=== PATIENT | female | born 2000 | race Two or more races ===

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

== ENCOUNTER 2019-07-03 22:04 | Emergency (ER) | payer OTHER ==
[~2019-07-03] VITALS: Ht 157.5 cm; Wt 77.0 kg
[~2019-07-03 22:04] MED LIST changes: +CLOT15CR4 TP
[2019-07-03 22:15] VITALS: BP 146/92
[2019-07-03 22:24] LABS: BILIRUBIN,URINE NEGATIVE (NEG); CLARITY,URINE CLEAR; COLOR,URINE YELLOW; NITRITE,URINE NEGATIVE (NEG); PH,URINE 5.5 (<5.0-8.0); PROTEIN,URINE NEGATIVE (NEG-TRACE)
--- NOTE | 2019-07-03 22:29 | PHYS DOC ---
Past Medical History Past Medical History: Abscess Additional Past Medical Histor: STOMACH ABSCESS CHILD, RIGHT GREAT TOE ABCESS, MRSA Past Surgical History: Other Additional Past Surgical Histo: STOMACH SX D/T ABSCESS Smoking Status: Never Smoker Alcohol Use: None Drug Use: Marijuana General Adult EDM: Chief Complaint: SEXUALLY TRANSMITTED DISEASE HPI: HPI: Patient is a 19 year old female who presents secondary to concern for possible syphilis. Her ex boyfriend tested positive for syphilis 2 days ago and the pa nadia reports that she was with him 2 weeks ago having unprotected intercourse. She complains of some mild whitish discharge, no fever or chills, no dysuria or hematuria. No medications given prior to arrival. Review of Systems: Review of Systems: All other systems negative except as documented in HPI. Heart Score: Risk Factors: Risk Factors: DM, Current or recent (<one month) smoker, HTN, HLP, family history of CAD, obesity. Risk Scores: Score 0 - 3: 2.5% MACE over next 6 weeks - Discharge Home Score 4 - 6: 20.3% MACE over next 6 weeks - Admit for Clinical Observation Score 7 - 10: 72.7% MACE over next 6 weeks - Early Invasive Strategies Allergies: Allergies: Allergies Coded Allergies Type Severity Reaction Last Updated Verified tioconazole Allergy Intermediate Swelling 07/01/15 Yes Physical Exam: PE: Constitutional: Well developed, well nourished, no acute distress, non-toxic appearance. [] HENT: Normocephalic, atraumatic, bilateral external ears normal, oropharynx moist, no oral exudates, nose normal. [] Eyes: PERRLA, EOMI, conjunctiva normal, no discharge. [] Neck: Normal range of motion, no tenderness, supple, no stridor. [] Cardiovascular:Heart rate regular rhythm, no murmur [] Lungs & Thorax: Bilateral breath sounds clear to auscultation [] Abdomen: Bowel sounds normal, soft, no tenderness, no masses, no pulsatile masses. [] Skin: Warm, dry, no erythema, no rash. [] Back: No tenderness, no CVA tenderness. [] Extremities: No tenderness, no cyanosis, no clubbing, ROM intact, no edema. [] Neurologic: Alert and oriented X 3, normal motor function, normal sensory function, no focal deficits noted. [] Psychologic: Affect normal, judgement normal, mood normal. [] Current Patient Data: Labs: Laboratory Tests Test 07/03/19 22:13 POC Urine HCG, Qualitative Hcg negative (Negative) EKG: EKG: [] Radiology/Procedures: Radiology/Procedures: [] Course & Med Decision Making: Course & Med Decision Making 2227: This patient is seen for concern for syphilis. We will obtain laboratory analysis and go ahead and treat her with penicillin 2,400,000 units. Patient is referred to the [facility] for further STD screening. Dragon Disclaimer: Dragon Disclaimer: This electronic medical record was generated, in whole or in part, using a voice recognition dictation system. Departure Departure Impression: Primary Impression: STD exposure Disposition: HOME, SELF-CARE Condition: STABLE Referrals: NO PCP (PCP) Patient Instructions: Sexually Transmitted Disease Additional Instructions: Please follow-up with [facility] for further STD screening. [address] [place] [address] YAZMIN JONES DO Jul 03, 2019 22:29
[2019-07-03 22:34] LABS: BACTERIA,URINE MODERATE /HPF (0-FEW); RBC,URINE 0 /HPF (0-2); WBC,URINE OCC /HPF (0-4)
[2019-07-03 22:35] LABS: SQUAMOUS EPITHELIAL CELL,UR FEW /LPF
[2019-07-03] MEDS ORDERED: PENICILLIN G BENZATHINE LA 2,400,000 UNIT/4 ML DISP.SYRIN. IM ONE (23:00)
== END 2019-07-03 23:00 | disposition home or self-care (01) ==
LOC: ER 22:04
DX: Z20.2 Contact with and (suspected) exposure to infections with a predominantly sexual mode of transmission (principal); N89.8 Other specified noninflammatory disorders of vagina; Z88.8 Allergy status to other drugs, medicaments and biological substances
CPT/HCPCS: 36415; 81001; 81025; 86592; 87086; 96372; 99283; J0561

== ENCOUNTER 2019-11-25 21:09 | Emergency (ER) | payer SELFPAY ==
[~2019-11-25] VITALS: Ht 160 cm; Wt 72.7 kg
[~2019-11-25 21:09] MED LIST changes: +CLOT15CR23 TP; -CLOT15CR4 TP
[2019-11-25 21:24] LABS: BILIRUBIN,URINE NEGATIVE (NEG); COLOR,URINE YELLOW; NITRITE,URINE NEGATIVE (NEG); PH,URINE 8.5 (<5.0-8.0); PROTEIN,URINE NEGATIVE (NEG-TRACE); UROBILINOGEN,URINE 0.2 mg/dL (0.2 mg/dL)
[2019-11-25 21:28] LABS: CLARITY,URINE CLEAR; SQUAMOUS EPITHELIAL CELL,UR MOD /LPF
[2019-11-25 21:29] LABS: BACTERIA,URINE FEW /HPF (0-FEW)
[2019-11-25 21:30] LABS: RBC,URINE 0 /HPF (0-2); WBC,URINE 0 /HPF (0-4)
[2019-11-25 21:35] VITALS: BP 138/88
--- NOTE | 2019-11-25 22:41 | PHYS DOC ---
Past Medical History Past Medical History: Abscess Additional Past Medical Histor: STOMACH ABSCESS CHILD, RIGHT GREAT TOE ABCESS, MRSA Past Surgical History: Other Additional Past Surgical Histo: STOMACH SX D/T ABSCESS Smoking Status: Never Smoker Additional Information: [employer] USER Alcohol Use: Occasionally Drug Use: Marijuana General Adult EDM: Chief Complaint: SEXUALLY TRANSMITTED DISEASE HPI: HPI: Patient is a 27-year-old female G1, P1 presenting with a possible STD. Patient states that for the past 2 weeks she has had increased malodorous discharge with a possible "cut" on the external surface of the labia majora. Patient has had 2 sexual partners in the last 2 months. Patient had chlamydia 2 years ago which was successfully treated. Patient has the Nexplanon since the of her son in 2018, patient does not have menstrual periods but has been intermittent sp otting. Patient denies any abdominal pain, burning while urinating, trouble defecating, fevers. Domestic abuse screening negative. Review of Systems: Review of Systems: Constitutional: Denies fever or chills Eyes: Denies redness or eye pain HENT: Denies nasal congestion or sore throat Respiratory: Denies cough or shortness of breath Cardiovascular: Denies chest pain or palpitations GI: Denies abdominal pain, nausea, or vomiting : Denies dysuria or hematuria, endorses malodorous vaginal discharge Musculoskeletal: Denies back pain or joint pain Integument: Denies rash or skin lesions Neurologic: Denies headache, focal weakness or sensory changes Complete systems were reviewed and found to be within normal limits, except as documented in this note. Allergies: Allergies: Allergies Coded Allergies Type Severity Reaction Last Updated Verified tioconazole Allergy Intermediate Swelling 07/01/15 Yes Physical Exam: PE: Constitutional: Well developed, well nourished, no acute distress, non-toxic appearance HENT: Normocephalic, atraumatic Eyes: PERRL, EOMI, conjunctiva normal, no discharge Neck: Normal range of motion, no tenderness, supple Lungs & Thorax: Bilateral breath sounds clear to auscultation, no wheezing Abdomen: Soft, no tenderness Skin: Warm, dry, no erythema, no rash Back: No tenderness, no CVA tenderness Extremities: No tenderness, ROM intact, no edema Neurologic: Alert and oriented X 3, normal motor function, normal sensory function, no focal deficits noted Psychologic: Affect normal, judgment normal Current Patient Data: Labs: Laboratory Tests Test 11/25/19 21:15 11/25/19 21:29 Urine Collection Type Unknown Urine Color Yellow Urine Clarity Clear Urine pH 8.5 (<5.0-8.0) Urine Specific [place] 1.015 (1.000-1.030) Urine Protein Negative mg/dL (NEG-TRACE) Urine Glucose (UA) Negative mg/dL (NEG) Urine Ketones (Stick) Trace mg/dL (NEG) Urine Blood Negative (NEG) Urine Nitrite Negative (NEG) Urine Bilirubin Negative (NEG) Urine Urobilinogen Dipstick 0.2 mg/dL (0.2 mg/dL) Urine Leukocyte Esterase Negative (NEG) Urine RBC 0 /HPF (0-2) Urine WBC 0 /HPF (0-4) Urine Squamous Epithelial Cells Mod /LPF Urine Bacteria Few /HPF (0-FEW) Urine Mucus Marked /LPF POC Urine HCG, Qualitative Hcg negative (Negative) Vital Signs: Vital Signs Date Time Temp Pulse Resp B/P (MAP) Pulse Ox O2 Delivery O2 Flow Rate FiO2 11/25/19 21:35 98.1 97 18 138/88 (105) 98 Room Air 98.1 Course & Med Decision Making: Course & Med Decision Making Pertinent Labs and Imaging studies reviewed. (See chart for details) Patient is a 19-year-old female presenting with possible STD. Patient has had increased malodorous vaginal discharge and a possible "scratch" on labia majora for the past 2 weeks. Urine test is negative, UA shows negative nitrates, negative blood, negative leukocyte esterase. Chlamydia and gonorrhea PCR is also pending. Wet prep shows Patient stable for discharge with outpatient follow-up with PCP. Discussed findings and plan with patient, who acknowledges understanding and agreement. Dragon Disclaimer: Dragon Disclaimer: This electronic medical record was generated, in whole or in part, using a voice recognition dictation system. Departure Departure Impression: Primary Impression: Concern about sexually transmitted disease in female without diagnosis Additional Impression: Bacterial vaginitis Disposition: 01 HOME, SELF-CARE Condition: STABLE Referrals: NO PCP (PCP) LISA RICE Jr, MD Patient Instructions: Bacterial Vaginosis, [id number], Sexually Transmitted Disease, [id number] Scripts Metronidazole (FLAGYL) 500 Mg Tablet 1 TAB PO BID for 7 Days, #14 TAB Prov: CHIN RINALDI DO 11/25/19 Justicifation of Admission Dx: Justifications for Admission: Justification of Admission Dx: N/A CHIN RINALDI DO Nov 25, 2019 22:41
[2019-11-25] MEDS ORDERED: cefTRIAXone IM 250 MG VIAL IM ONE (23:34)
[2019-11-25] MEDS ORDERED: AZITHROMYCIN 250 MG TABLET. ONE (23:34)
[2019-11-25] MEDS ORDERED: METR500T PO (23:46)
[2019-11-26] MEDS ORDERED: AZITHROMYCIN 250 MG TABLET. PO ONE (00:15)
[2019-11-26] MEDS ORDERED: cefTRIAXone IM 250 MG VIAL IM ONE (00:15)
[2019-11-27 21:08] LABS: GC PROBE Negative (Negative)
== END 2019-11-25 23:52 | disposition home or self-care (01) ==
LOC: ER 21:09
DX: N76.0 Acute vaginitis (principal); B96.89 Other specified bacterial agents as the cause of diseases classified elsewhere; Z20.2 Contact with and (suspected) exposure to infections with a predominantly sexual mode of transmission; Z88.8 Allergy status to other drugs, medicaments and biological substances
CPT/HCPCS: 81001; 81025; 87491; 87591; 96372; 99283; J0696; Q0111

== ENCOUNTER 2020-08-04 13:36 | Emergency (ER) | payer SELFPAY ==
[~2020-08-04] VITALS: Ht 160 cm; Wt 68.2 kg
[~2020-08-04 13:36] MED LIST changes: +METR500T PO
--- NOTE | 2020-08-04 15:27 | PHYS DOC ---
Past Medical History Past Medical History: No Pertinent History Additional Past Medical Histor: STOMACH ABSCESS CHILD, RIGHT GREAT TOE ABCESS, MRSA Past Surgical History: No Surgical History Additional Past Surgical Histo: STOMACH SX D/T ABSCESS Smoking Status: Current Every Day Smoker Alcohol Use: None Drug Use: Marijuana General Adult EDM: Chief Complaint: SORE THROAT HPI: HPI: Patient is a 20 year old female who presents with a sore throat for the last week. She has had some nausea. She states that she has been getting strep frequently the last couple months. She denies abdominal pain, not been able to swallow saliva or food, vomiting, diarrhea, fever, headache, dizziness. Patient rates her pain a 7 out of 10. She has a history of strep throat, stomach abs cess, right great toe, MRSA. Review of Systems: Review of Systems: Constitutional: Denies fever or chills. [] Eyes: Denies change in visual acuity. [] HENT: Denies nasal congestion or +sore throat. [] Respiratory: Denies cough or shortness of breath. [] Cardiovascular: Denies chest pain or edema. [] GI: Denies abdominal pain, +nausea, denies Vomiting, bloody stools or diarrhea. [] : Denies dysuria. [] Musculoskeletal: Denies back pain or joint pain. [] Integument: Denies rash. [] Neurologic: Denies headache, focal weakness or sensory changes. [] Endocrine: Denies polyuria or polydipsia. [] Lymphatic: Denies swollen glands. [] Psychiatric: Denies depression or anxiety. [] Heart Score: C/O Chest Pain: No Risk Factors: Risk Factors: DM, Current or recent (<one month) smoker, HTN, HLP, family history of CAD, obesity. Risk Scores: Score 0 - 3: 2.5% MACE over next 6 weeks - Discharge Home Score 4 - 6: 20.3% MACE over next 6 weeks - Admit for Clinical Observation Score 7 - 10: 72.7% MACE over next 6 weeks - Early Invasive Strategies Allergies: Allergies: Allergies Coded Allergies Type Severity Reaction Last Updated Verified tioconazole Allergy Intermediate Swelling 07/01/15 Yes Physical Exam: PE: Constitutional: Well developed, well nourished, no acute distress, non-toxic appearance. [] HENT: Normocephalic, atraumatic, bilateral external ears normal, oropharynx moist, no oral exudates, nose normal. Bilateral tonsils 2+ swollen with exudates. Uvula midline. No trismus. [] Eyes: PERRLA, EOMI, conjunctiva normal, no discharge. [] Neck: Normal range of motion, no tenderness, supple, no stridor. [] Cardiovascular:Heart rate regular rhythm, no murmur [] Lungs & Thorax: Bilateral breath sounds clear to auscultation [] Abdomen: Bowel sounds normal, soft, no tenderness, no masses, no pulsatile masses. [] Skin: Warm, dry, no erythema, no rash. [] Back: No tenderness, no CVA tenderness. [] Extremities: No tenderness, no cyanosis, no clubbing, ROM intact, no edema. [] Neurologic: Alert and oriented X 3, normal motor function, normal sensory func tion, no focal deficits noted. [] Psychologic: Affect normal, judgement normal, mood normal. [] Current Patient Data: Vital Signs: Vital Signs Date Time Temp Pulse Resp B/P (MAP) Pulse Ox O2 Delivery O2 Flow Rate FiO2 08/04/20 13:50 99.0 124 20 123/78 (93) 98 Room Air 99.0 EKG: EKG: [] Radiology/Procedures: Radiology/Procedures: [] Impression: [facility] [address] [place] [address] IMAGING REPORT Signed PATIENT: ANA MACEDO RACCOUNT: [id number] : 2000 LOCATION: ER AGE: 20 SEX: F EXAM STATUS: REG ER ORD. PHYSICIAN: CECILE DESIR APRN REASON: swollen tonsils with exudates, fever, tenderness PROCEDURE: CT SOFT TISSUE NECK W/CONTRAST CT NECK SOFT TISSUE WITH IV CONTRAST DATE: 08/04/2020 5:16 PM INDICATION: swollen tonsils with exudates, fever, tenderness TECHNIQUE: Axial computed tomography of the neck with intravenous contrast according to the standard neck protocol. 70 cc of Omnipaque 300 was administered intravenously. One or more of the following dose reduction techniques were utilized: Automated exposure control (AEC), Adjustment of mA and/or kV according to patient size, Use of iterative reconstruction technique such as ASiR, CT scan done according to ALARA and image gently/image wisely COMPARISON: None. FINDINGS: Symmetric enlargement of the palatine tonsils with heterogeneous enhancement. No abscess. No retropharyngeal collection. Enlarged bilateral cervical lymph nodes. A left cervical level 2 lymph node has central hypoattenuation, likely suppuration in a patient of this age (series 2 image 49). Scattered subcentimeter lymph nodes are seen in the neck. None are pathologica lly enlarged or abnormally enhancing. The parotid, submandibular, and thyroid glands are normal. The muscles of the neck are normal. Vessels of the neck demonstrate normal course, caliber, and enhancement. Right maxillary second molar dental cavity.. The visualized posterior fossa and brain is unremarkable. The visualized orbits and paranasal sinuses are normal. The cervical spine is normal. The visualized lung apices are clear. IMPRESSION: 1. Enlarged enhancing palatine tonsils consistent with tonsillitis. No abscess. No retropharyngeal collection. 2. Bilateral cervical lymphadenopathy, likely reactive. 3. Right maxillary second molar dental cavity. Electronically signed by: Cesar Perez MD (08/04/2020 5:50 PM) [facility] DICTATED and SIGNED BY: CESAR PEREZ MD DATE: 08/04/20 [id number] 0 Course & Med Decision Making: Course & Med Decision Making Pertinent Labs and Imaging studies reviewed. (See chart for details) See HPI. Alert and oriented x4. Ambulatory with a steady gait. Uvula midline. No trismus. Speaks in full clear sentences. Bilateral tonsils 2+ swollen with exudate. Rapid strep is negative. Heart rate is 124. Patient is gotten 2 L of normal saline. She is also on Zosyn and dexamethasone in the ED. Patient's heart rate has come down to 90. Lactic acid is normal. Mononucleosis is negative. [] Dragon Disclaimer: Dragon Disclaimer: This electronic medical record was generated, in whole or in part, using a voice recognition dictation system. Departure Departure Impression: Primary Impression: Tonsillitis Disposition: HOME / SELF CARE / HOMELESS Condition: STABLE Referrals: NO PCP (PCP) KEVIN MARTINEZ MD Patient Instructions: Tonsillitis Additional Instructions: I have referred you to an ENT. Call them soon as possible. I will also give you a clinics list for follow-up care. Take antibiotic as prescribed and with food. Start the steroids tomorrow. If you begin having shortness of breath or cannot swallow any liquids at all return the emergency room. Scripts Methylprednisolone (MEDROL) 4 Mg Tab.ds.pk 1 PKG PO UD, #1 PKG Start 08/05/2020 Prov: CECILE DESIR APRN 08/04/20 Ibuprofen (IBUPROFEN) 600 Mg Tablet 600 MG PO PRN Q6HRS PRN for INFLAMMATION, #30 TAB Prov: CECILE DESIR APRN 08/04/20 Amoxicillin/Potassium Clav (AUGMENTIN 875-125 TABLET) 1 Each Tablet 1 TAB PO BID for 10 Days, #20 TAB 0 Refills Prov: CECILE DESIR APRN 08/04/20 CECILE DESIR APRN August 04, 2020 15:27
[2020-08-04] MEDS ORDERED: IV NORMAL SALINE 1000ML BAG 1,000 ML IV ONE (15:30)
[2020-08-04] MEDS ORDERED: PIPERACILLIN/TAZOBACTAM 3.375 GM in IV NORMAL SALINE 50ML 50 ML IV ONE (16:00)
[2020-08-04] MEDS ORDERED: ONDANSETRON PF 4 MG/2 ML VIAL. IVP ONE (16:00)
[2020-08-04] MEDS ORDERED: KETOROLAC 15 MG/ML VIAL. IVP ONE (16:00)
[2020-08-04] MEDS ORDERED: DEXAMETHASONE SOD PHOS 4 MG/ML VIAL IVP ONE (16:00)
[2020-08-04 16:57] LABS: BASO % 0 % (0-3); EOS % 0 % (0-3); HEMOGLOBIN 15.6 g/dL (12.0-15.5); LYMPH # 1.1 x10^3/uL (1.0-4.8); LYMPH % 7 % (24-48); MEAN CORPUSCULAR HEMOGLOBIN 32 pg (25-35); MEAN CORPUSCULAR HGB CONC 35 g/dL (31-37); MEAN CORPUSCULAR VOLUME 89 fL (79-100); MONO % 6 % (0-9); NEUT # 13.2 x10^3/uL (1.8-7.7); NEUT % 86 % (31-73); PLATELET COUNT 198 x10^3/uL (140-400); RED BLOOD COUNT 4.94 x10^6/uL (3.50-5.40); RED CELL DISTRIBUTION WIDTH 13.1 % (11.5-14.5); WHITE BLOOD COUNT 15.3 x10^3/uL (4.0-11.0)
[2020-08-04 17:07] LABS: CALCIUM 8.9 mg/dL (8.5-10.1); CREATININE 0.7 mg/dL (0.6-1.0); GFR 105.6; POTASSIUM 3.3 mmol/L (3.5-5.1)
[2020-08-04 17:20] LABS: MONONUCLEOSIS PATIENT NEGATIVE (NEGATIVE)
[2020-08-04 17:21] LABS: ALBUMIN 3.9 g/dL (3.4-5.0); TOTAL BILIRUBIN 0.8 mg/dL (0.2-1.0)
[2020-08-04] MEDS ORDERED: CONTRAST GIVEN. MC PRN (17:30)
[2020-08-04] MEDS ORDERED: IOHEXOL 300 MG/ML 100ML VIAL. IV ONE (17:30)
--- NOTE | 2020-08-04 17:53 | RAD ---
CT NECK SOFT TISSUE WITH IV CONTRAST DATE: 08/04/2020 5:16 PM INDICATION: swollen tonsils with exudates, fever, tenderness TECHNIQUE: Axial computed tomography of the neck with intravenous contrast according to the standard neck protocol. 70 cc of Omnipaque 300 was administered intravenously. One or more of the following do se reduction techniques were utilized: Automated exposure control (AEC), Adjustment of mA and/or kV according to patient size, Use of iterative reconstruction technique such as ASiR, CT scan done accor ding to ALARA and image gently/image wisely COMPARISON: None. FINDINGS: Symmetric enlargement of the palatine tonsils with heterogeneous enhancement. No abscess. No retropha ryngeal collection. Enlarged bilateral cervical lymph nodes. A left cervical level 2 lymph node has central hypoattenuati on, likely suppuration in a patient of this age (series 2 image 49). Scattered subcentimeter lymph nodes are seen in the neck. None are pathologically enlarged or abnorma lly enhancing. The parotid, submandibular, and thyroid glands are normal. The muscles of the neck are normal. Vessels of the neck demonstrate normal course, caliber, and enhancement. Right maxillary sec ond molar dental cavity.. The visualized posterior fossa and brain is unremarkable. The visualized orbits and paranasal sinuses are normal. The cervical spine is normal. The visualized lung apices are clear. IMPRESSION: 1. Enlarged enhancing palatine tonsils consistent with tonsillitis. No abscess. No retropharyngeal co llection. 2. Bilateral cervical lymphadenopathy, likely reactive. 3. Right maxillary second molar dental cavity. Electronically signed by: Paul Perez MD (08/04/2020 5:50 PM) [facility]
[2020-08-04] MEDS ORDERED: AMOX1TAB61 PO (18:02)
[2020-08-04] MEDS ORDERED: IBUP-1007 PO (18:02)
[2020-08-04] MEDS ORDERED: METH4TAB2 PO (18:02)
[2020-08-04 19:40] VITALS: BP 107/65
[2020-08-04 19:55] LABS: % LYMPHS 13 % (24-48); % MONOS 2 % (0-10); % SEGS 85 % (35-66)
[2020-08-04 19:56] LABS: PLT ESTIMATE ADEQUATE (ADEQUATE)
== END 2020-08-04 19:40 | disposition home or self-care (01) ==
LOC: ER 13:36
DX: J03.90 Acute tonsillitis, unspecified (principal)
CPT/HCPCS: 36415; 70491; 80053; 81025; 83605; 85007; 85025; 86308; 87040; 87070; 87880; 96365; 96366; 96375; 99285; J1100; J1885; J2405; J2543; J7030; Q9967